=== PATIENT | female | born 1990 | race Caucasian/White ===

== ENCOUNTER 2018-09-13 14:10 | Emergency (ER) | payer BC ==
[~2018-09-13] VITALS: Ht 162.6 cm; Wt 54.4 kg
[2018-09-13 14:19] VITALS: BP_SYST 11
[2018-09-13] MEDS ORDERED: NACL 0.9% 1,000 ML IV ONE ×2 (15:30→17:00)
[2018-09-13] MEDS ORDERED: ONDANSETRON HCL 4 MG/2 ML VIAL IVP ONE (15:30)
[2018-09-13] MEDS ORDERED: KETOROLAC TROMETHAMINE 30 MG VIAL IVP ONE (15:30)
[2018-09-13 15:46] LABS: BILIRUBIN,URINE NEGATIVE (NEGATIVE); BLOOD, URINE 3+ (NEGATIVE); CLARITY/URINE CLEAR (CLEAR); COLOR,URINE YELLOW (YELLOW); GLUCOSE,URINE NEGATIVE (NEGATIVE); KETONES,URINE 3+ (NEGATIVE); LEUKOCYTE ESTERASE ,URINE NEGATIVE (NEGATIVE); NITRITE, URINE NEGATIVE (NEGATIVE); PH,URINE 5.5 (5.0-8.0); PROTEIN URINE NEGATIVE (NEGATIVE); UROBILINOGEN,URINE 0.2 (0.2-1.0)
[2018-09-13 15:50] LABS: BASOPHILS # (AUTO) 0.1 K/uL (0.0-0.2); BASOPHILS % (AUTO) 1.5 % (0.0-2.0); EOSINOPHILS % (AUTO) 0.1 % (0.0-4.0); HEMOGLOBIN 13.4 g/dL (12.0-16.0); LYMPHOCYTES # (AUTO) 0.3 K/uL (1.0-5.5); LYMPHOCYTES % (AUTO) 4.2 % (20.5-51.5); MEAN CORPUSCULAR HEMOGLOBIN 31 pg (27-31); MEAN CORPUSCULAR HGB CONC 34 % (32-36); MEAN CORPUSCULAR VOLUME 91 fL (79.0-98.0); MONOCYTES # (AUTO) 0.1 K/uL (0.0-1.0); MONOCYTES % (AUTO) 2.4 % (1.7-9.3); NEUTROPHILS # (AUTO) 5.5 K/uL (1.8-7.7); NEUTROPHILS % (AUTO) 91.8 % (40.0-70.0); PLATELET COUNT (AUTO) 220 K/uL (130-430); RED CELL DISTRIBUTION WIDTH 11.1 % (9.0-15.0)
[2018-09-13 15:51] LABS: BACTERIA,URINE FEW /HPF (None Seen); MUCUS,URINE 1+ /LPF (None Seen); WBC,URINE 0-3 /HPF (0-3)
[2018-09-13 15:51] LABS: CALCIUM 8.8 mg/dL (8.4-11.0); CREATININE 0.93 mg/dL (0.55-1.30); POTASSIUM 3.8 mmol/L (3.5-5.1)
[2018-09-13 15:55] LABS: ALBUMIN 3.8 g/dL (3.4-4.8); TOTAL BILIRUBIN 0.5 mg/dL (0.0-1.0)
[2018-09-13] MEDS ORDERED: DIPHENHYDRAMINE INJ 50 MG/ML VIAL IVP ONE (17:00)
[2018-09-13] MEDS ORDERED: chlorproMAZINE HCL 50 MG/ 2 ML AMP IVP ONE (17:00)
[2018-09-13 18:00] VITALS: BP_SYST 93
== END 2018-09-13 18:00 | disposition home or self-care (01) ==
LOC: SED 14:10
DX: K29.00 Acute gastritis without bleeding (principal)
CPT/HCPCS: 36415; 80053; 81000; 83690; 85025; 96361; 96374; 96375; 99283; J1200; J1885; J2405; J3230; J7030

== ENCOUNTER 2020-02-06 18:43 | Emergency (ER) | payer BC ==
[~2020-02-06] VITALS: Ht 162.6 cm; Wt 52.2 kg
[2020-02-06 18:50] VITALS: BP_SYST 121
--- NOTE | 2020-02-06 19:22 | NUR ---
Patient to ER bed 07 to gown for evaluation. Side rails up.
--- NOTE | 2020-02-06 19:25 | NUR ---
Patient is alert and oriented x4 and complains of lower abdominal and groin pain that orginally started about two months ago. She states her pain feels like a "discomfort" burning sensation that comes and goes rated at a 5 out of 10. Patient states she feels bloated, swollen, nausea, dizzy, and vomitied once on wednesday. Patients last bowel movement was this morning. Patient denies blood, pain, burning or an increase in frequency while urinating. Patients last menstrual period was on 01/08/2020. Patient states she has not introduced anything new into her diet in the past two months. Patient states she called her primary doctor and had a stool sample and blood work done and was prescribed omeprazole, dicyclomine, and mag-oxide on 01/24/2020.
--- NOTE | 2020-02-06 19:35 | NUR ---
ER Dr. Marquez at bedside examining patient.
[2020-02-06] MEDS ORDERED: KETOROLAC TROMETHAMINE 60 MG/2 ML VIAL IM ONE (19:45)
[2020-02-06 19:51] LABS: BILIRUBIN,URINE NEGATIVE (NEGATIVE); BLOOD, URINE NEGATIVE (NEGATIVE); CLARITY/URINE CLEAR (CLEAR); COLOR,URINE YELLOW (YELLOW); GLUCOSE,URINE NEGATIVE (NEGATIVE); KETONES,URINE NEGATIVE (NEGATIVE); LEUKOCYTE ESTERASE ,URINE TRACE (NEGATIVE); NITRITE, URINE NEGATIVE (NEGATIVE); PH,URINE 7.5 (5.0-8.0); PROTEIN URINE NEGATIVE (NEGATIVE); UROBILINOGEN,URINE 0.2 (0.2-1.0)
--- NOTE | 2020-02-06 19:55 | NUR ---
Pt. off unit to radiology accompanied by supervisor grading.
--- NOTE | 2020-02-06 20:00 | NUR ---
moved to bed 3
[2020-02-06 20:04] LABS: BASOPHILS # (AUTO) 0.1 K/uL (0.0-0.2); EOSINOPHILS # (AUTO) 0.2 K/uL (0.0-0.4); HEMOGLOBIN 13.1 g/dL (12.0-16.0); LYMPHOCYTES # (AUTO) 2.5 K/uL (1.0-5.5); LYMPHOCYTES % (AUTO) 45.4 % (20.5-51.5); MEAN CORPUSCULAR HEMOGLOBIN 32 pg (27-31); MEAN CORPUSCULAR HGB CONC 34 % (32-36); MEAN CORPUSCULAR VOLUME 94 fL (79.0-98.0); MONOCYTES # (AUTO) 0.4 K/uL (0.0-1.0); MONOCYTES % (AUTO) 7.2 % (1.7-9.3); NEUTROPHILS # (AUTO) 2.4 K/uL (1.8-7.7); NEUTROPHILS % (AUTO) 43.4 % (40.0-70.0); PLATELET COUNT (AUTO) 242 K/uL (130-430); RED BLOOD CELL COUNT(AUTO) 4.17 MIL/uL (4.2-6.2); RED CELL DISTRIBUTION WIDTH 12.2 % (9.0-15.0); WHITE BLOOD COUNT (AUTO) 5.6 K/uL (4.8-10.8)
[2020-02-06 20:07] LABS: BACTERIA,URINE FEW /HPF (None Seen); RBC,URINE 0-3 /HPF (0-3); WBC,URINE 0-3 /HPF (0-3)
--- NOTE | 2020-02-06 20:18 | NUR ---
Patient returned from ultrasound
[2020-02-06 20:27] LABS: CALCIUM 8.9 mg/dL (8.4-11.0); CREATININE 1.21 mg/dL (0.55-1.30); POTASSIUM 3.8 mmol/L (3.5-5.1)
[2020-02-06 20:40] LABS: ALBUMIN 3.6 g/dL (3.4-4.8); TOTAL BILIRUBIN 0.3 mg/dL (0.0-1.0)
--- NOTE | 2020-02-06 20:53 | NUR ---
Pelvic exam performed by Villanueva with myself at bedside for entire examination. Patient tolerated procedure . Patient assisted to position of comfort after examination.
[2020-02-06] MEDS ORDERED: FLUCONAZOLE 200 MG TABLET (DIFLUCAN) PO ONE (21:00)
[2020-02-06] MEDS ORDERED: FLUCONAZOLE 100 MG TABLET (DIFLUCAN) PO ONE (21:15)
[2020-02-06 21:21] VITALS: BP_SYST 126
--- NOTE | 2020-02-06 21:21 | NUR ---
Patient given written and verbal discharge instructions and verbalizes understanding. ER MD discussed with patient the results and treatment provided. Patient in stable condition. ID arm band removed. Rx of motrin given. Patient educated on pain management and to follow up with PMD. Pain Scale 2/10. Opportunity for questions provided and answered. Medication side effect fact sheet provided.
[2020-02-06] MEDS ORDERED: FLUCONAZOLE 100 MG TABLET (DIFLUCAN) ONE (21:31)
== END 2020-02-06 21:21 | disposition home or self-care (01) ==
LOC: SED 18:43
DX: R10.2 Pelvic and perineal pain (principal)
CPT/HCPCS: 36415; 76856; 80053; 81000; 81025; 83690; 84702; 85025; 96372; 99284; J1885

== ENCOUNTER 2022-03-12 09:23 | Emergency (ER) | payer BC, OTHER ==
[~2022-03-12] VITALS: Ht 162.6 cm; Wt 56.7 kg
[2022-03-12 09:27] VITALS: BP_SYST 120
--- NOTE | 2022-03-12 09:40 | NUR ---
Placed in room 7 . Placed on cardiac/vascular sonographer, blood pressure machine and pulse oximeter. To gown for exam. Side rails up. Report given to MAIK SMITH.
--- NOTE | 2022-03-12 09:43 | NUR ---
ER at bedside examining patient.
--- NOTE | 2022-03-12 09:47 | NUR ---
Urine done and results were positive. Urine sent to lab.
--- NOTE | 2022-03-12 10:14 | NUR ---
TAKEN TO RADIOLOGY VIA WHEELCHAIR
[2022-03-12 10:20] LABS: BILIRUBIN,URINE NEGATIVE (NEGATIVE); BLOOD, URINE NEGATIVE (NEGATIVE); CLARITY/URINE CLEAR (CLEAR); COLOR,URINE YELLOW (YELLOW); GLUCOSE,URINE NEGATIVE (NEGATIVE); KETONES,URINE NEGATIVE (NEGATIVE); LEUKOCYTE ESTERASE ,URINE NEGATIVE (NEGATIVE); NITRITE, URINE NEGATIVE (NEGATIVE); PROTEIN URINE NEGATIVE (NEGATIVE); UROBILINOGEN,URINE 0.2 (0.2-1.0)
--- NOTE | 2022-03-12 11:12 | NUR ---
Returned from radiology, back to [facility].
[2022-03-12] MEDS ORDERED: PREN-119 PO (12:08)
[2022-03-12] MEDS ORDERED: MICO15CR VG (12:08)
[2022-03-12 12:22] VITALS: BP_SYST 122
--- NOTE | 2022-03-12 12:23 | NUR ---
Patient given written and verbal discharge instructions and verbalizes understanding. ER MD discussed with patient the results and treatment provided. Patient in stable condition. ID arm band removed. Patient educated on pain management and to follow up with PMD. Pain Scale 0/10. Opportunity for questions provided and answered. Medication side effect fact sheet provided.
== END 2022-03-12 12:23 | disposition home or self-care (01) ==
LOC: SED 09:23
DX: O20.0 Threatened abortion (principal); Z3A.01 Less than 8 weeks gestation of pregnancy
CPT/HCPCS: 36415; 76801; 76817; 81003; 81025; 84702; 86886; 86900; 86901; 99284

== ENCOUNTER 2022-08-20 18:55 | Observation (INO) | payer OTHER ==
[~2022-08-20] VITALS: Ht 162.6 cm; Wt 62.1 kg
[~2022-08-20 18:55] MED LIST: MICO15CR VG; PREN-119 PO
== END 2022-08-20 20:25 | disposition home or self-care (01) ==
LOC: SPU 18:55
PROVIDERS: ADMIT Obstetrics & Gynecology; ATTEND Obstetrics & Gynecology
DX: O35.8XX0 Maternal care for other (suspected) fetal abnormality and damage, not applicable or unspecified (principal); O62.9 Abnormality of forces of labor, unspecified; Z3A.28 28 weeks gestation of pregnancy
CPT/HCPCS: 59025; 81002; G0378; G0379